=== PATIENT | female | born 1990 ===

== ENCOUNTER 2016-06-02 15:54 | Emergency (ER) | payer BC ==
[2016-06-02] MEDS ORDERED: Rabies Vaccine, PCEC INJ IM ONE (16:50)
--- NOTE | 2016-06-02 16:50 | UC ---
UC General HPI - History of Current Complaint Chief Complaint: UCGeneralIllness Stated Complaint: RABIES SHOT Time Seen by Provider: 06/02/16 16:42 Hx Obtained From: Patient Onset/Duration: Sudden Onset - was bitten by stray dog in [place] while traveling on May 19. She was treated there on that day and then in [facility] when she returned to the [facility] 2 days later. SHe is here visiting family and has documentation that states she is due for her next rabies vaccine today. SHe denies any probs Associated Signs & Symptoms: Negative: Agitation, Dizziness - Allergy/Home Medications Allergies/Adverse Reactions: Allergies Allergy/AdvReac Type Severity Reaction Status Date / Time No Known Allergies Allergy Verified 06/02/16 16:38 Home Medications: Home Medications NK [No Home Medications Reported] 06/02/16 [History Confirmed 06/02/16] PMH/Surg Hx/FS Hx/Imm Hx Previously Healthy: Yes Cardiovascular History Of: Reports: Cardiac Disorders Respiratory History Of: Denies: Asthma - Surgical History Surgical History: Yes Surgery Procedure, Year, and Place: hip - Family History Known Family History: Positive: None - Social History Occupation: Student Lives: With Family Alcohol Use: Occasionally Substance Use Type: None Smoking Status (MU): Never Smoked Tobacco Review of Systems Constitutional: Negative Respiratory: Negative Cardiovascular: Negative Musculoskeletal: Negative Neurological: Negative Psychological: Negative All Other Systems Reviewed And Are Negative: Yes Physical Exam Triage Information Reviewed: Yes Appearance: Well-Appearing, No Pain Distress, Well-Nourished Vital Signs: Initial Vital Signs Temp 97.9 F 06/02/16 16:34 Pulse 59 06/02/16 16:34 Resp 16 06/02/16 16:34 BP 120/62 06/02/16 16:34 Pulse Ox 99 06/02/16 16:34 Vital Signs Reviewed: Yes Respiratory Exam: Normal Cardiovascular Exam: Normal Psychological Exam: Normal Skin Exam: Normal Course/Dx - Differential Dx - Multi-Symptom Differential Diagnoses: Other - post-rabies exposure vaccine Provider Diagnoses: post rabies vaccine Discharge - Discharge Plan Condition: Good Disposition: HOME Patient Education Materials: Rabies Vaccine (ED) Additional Instructions: Follow the written rabies vaccine schedule you have with you. report problems
== END 2016-06-02 17:25 | disposition home or self-care (01) ==
LOC: UCEAST 15:54
DX: Z23 Encounter for immunization (principal); I51.9 Heart disease, unspecified
CPT/HCPCS: 90471; 90675; 99201; G0463